=== PATIENT | female | born 1945 | race Caucasian/White ===

== ENCOUNTER 2017-06-01 05:07 | Inpatient (IN) | payer OTHER, MEDICARE ==
[~2017-06-01] VITALS: Ht 165.1 cm; Wt 80.0 kg
[2017-06-01 05:08] VITALS: BP 133/60; PULSE 93; RESP 18; TEMP 99.4; O2SAT 99
[2017-06-01] MEDS ORDERED: ONDANSETRON HCL 4 MG/2 ML VIAL IV PUSH ONE (05:30)
[2017-06-01] MEDS ORDERED: SODIUM CHLORID 0.9% 500 ML INJ 500 ML IV ONE (05:30)
--- NOTE | 2017-06-01 05:44 | PD ---
HPI Chief Complaint: Abdominal Pain Time Seen by Provider: 05:17 Travel History International Travel<30 days: No Contact w/Intl Traveler<30days: No Traveled to known affect area: No History of Present Illness HPI The patient is a 72 year old female who presents to the [facility] [address] emergency department with a history of reportedly not feeling well for the last 2 days. She reports that it began with generalized body aches, nausea, and cough. She reports that since then she has developed a dry mouth, nausea vomiting since last evening 5, however no new diarrhea. The patient reports that she has loose stools usually 2 times per day. She denies having any blood in her stool or black or tarry stools. She reports having a subjective fever and chills. She reports that her cough is dry in character. She denies having any dysuria, urinary urgency, or urinary frequency. She reports having left sided abdominal pain associated with this. She is visiting from out of town. She reports that the symptoms are similar to when she had shingles. She denies having any rashes currently. Review of systems otherwise, the patient denies having any neck stiffness, chest pain, shortness of breath, or neurologic symptoms. [facility] Past Medical History Narrative Medical The patient's past medical history is significant for hypertension, carotid artery occlusion status post stent placement, shingles-2012, history of squamous cell carcinoma, history of asthma/COPD, hyperlipidemia, chronic sinusitis, allergic rhinitis. Past Surgical History Narrative Surgical The patient's past surgical history is significant for repair of mesenteric artery occlusion, cholecystectomy, hysterectomy, carotid artery stent placement , sinus surgery, cardiac cath in the past 2 without any evidence of coronary artery disease, and squamous cell skin carcinoma resection. Social History Alcohol Use: No Tobacco Use: No (Quit in 2003) Substance Use: No Allergies-Medications (Allergen,Severity, Reaction): Coded Allergies: No Known Allergies (Unverified , 06/01/17) Reported Meds & Prescriptions Reported Meds & Active Scripts Active Reported Breo Ellipta Inh (Fluticasone/Vilanterol) 200-25 Mcg/Act Inh 1 Puff INH DAILY Use daily at the same time. Ventolin Hfa 18 GM Inh (Albuterol Sulfate) 90 Mcg/Act Aer 1 Puff INH Q4H PRN Carvedilol 12.5 Mg Tab 12.5 Mg PO BID Montelukast (Montelukast Sodium) 10 Mg Tab 10 Mg PO HS Lovastatin 10 Mg Tab 10 Mg PO DAILY Aspirin 81 Mg Chew 81 Mg CHEW DAILY Cetirizine (Cetirizine HCl) 10 Mg Chew 10 Mg CHEW DAILY Amlodipine-Benazepril 2.5-10 (Amlodipine Besylate/Benazepril) 2.5 Mg-10 Mg Capsule Hydrochlorothiazide 25 Mg Tab 25 Mg PO DAILY Flonase Nasal Anza (Fluticasone Nasal Anza) 50 Mcg/Act Anza 50 Mcg EACH NARE BID Robitussin Cough Chest Congestion (Dextromethorphan-Guaifenesin) 10-200 Mg Cap 1 Cap PO Q4H PRN Review of Systems Except as stated in HPI: all other systems reviewed are Neg General / Constitutional: No: Fever Eyes: No: Visual changes HENT: No: Headaches Cardiovascular: No: Chest Pain or Discomfort Respiratory: No: Shortness of Breath Gastrointestinal: Positive: Nausea, Vomiting, Abdominal Pain Genitourinary: No: Dysuria Musculoskeletal: No: Pain Skin: No Rash Neurologic: No: Weakness Psychiatric: No: Depression Endocrine: No: Polydipsia Hematologic/Lymphatic: No: Easy Bruising Physical Exam Narrative General: The patient is a well-developed well-nourished female in no acute distress. Head and Neck exam: Head is normocephalic atraumatic. Eyes: EOMI, pupils are equal round and reactive to light. Nose: Midline septum with pink mucous membranes Mouth: Dentition unremarkable. Moist mucus membranes. Posterior oropharynx is not erythematous. No tonsillar hypertrophy. Uvula midline. Airway patent. Neck: No palpable lymphadenopathy. No nuchal rigidity. No thyromegaly. Cardiovascular: Regular rate and rhythm without murmurs, gallops, or rubs. No pulse deficit to the extremities on simultaneous auscultation and palpation of her radial artery. Lungs: Clear to auscultation bilaterally. No wheezes, rhonchi, or rales. Abdomen: Soft, with reported tenderness on palpation in the left upper and lower quadrant of the abdomen, no other tenderness on palpation of the other quadrants of the abdomen, no guarding, rebound, or rigidity. Normal bowel sounds are audible. No tenderness on palpation of McBurney's point. Negative Simons sign. Extremities: No clubbing, cyanosis, or edema. 2+ pulses in all 4 extremities. No calf tenderness on palpation. Back: No spinous process tenderness to palpation. The patient has left-sided CVA tenderness on palpation. Neurologic Exam: Grossly nonfocal. Skin Exam: No rash noted. Intact skin that is warm and dry. Data Data Last Documented VS Vital Signs Date Time Temp Pulse Resp B/P (MAP) Pulse Ox O2 Delivery O2 Flow Rate FiO2 06/01/17 05:08 99.4 93 18 133/60 (84) 99 Orders Orders Electrocardiogram (06/01/17 05:20) Complete Blood Count With Diff (06/01/17 05:20) Comprehensive Metabolic Panel (06/01/17 05:20) Creatine Kinase (Cpk) (06/01/17 05:20) Ckmb (Isoenzyme) Profile (06/01/17 05:20) Troponin I (06/01/17 05:20) Prothrombin Time / Inr (Pt) (06/01/17 05:20) Act Partial Throm Time (Ptt) (06/01/17 05:20) Lipase (06/01/17 05:20) Urinalysis - C+S If Indicated (06/01/17 05:20) Magnesium (Mg) (06/01/17 05:20) Chest, Single Ap (06/01/17 05:20) Iv Access Insert/Monitor (06/01/17 05:20) Ecg Monitoring (06/01/17 05:20) Oximetry (06/01/17 05:20) Lactic Acid Sepsis Protocol (06/01/17 05:20) Sodium Chlorid 0.9% 500 Ml Inj (Ns 500 M (06/01/17 05:30) Ondansetron Inj (Zofran Inj) (06/01/17 05:30) Blood Culture (06/01/17 06:27) Ct Abd/Pel W Iv Contrast(Rout) (06/01/17 ) Ceftriaxone Inj (Rocephin Inj) (06/01/17 06:30) Azithromycin Inj (Zithromax Inj) (06/01/17 06:30) Influenzae A/B Antigen (06/01/17 06:27) Labs Laboratory Tests Test 06/01/17 05:40 06/01/17 06:12 Lactic Acid Level 1.6 mmol/L White Blood Count 15.8 TH/MM3 Red Blood Count 4.59 MIL/MM3 Hemoglobin 13.7 GM/DL Hematocrit 39.8 % Mean Corpuscular Volume 86.8 FL Mean Corpuscular Hemoglobin 29.8 PG Mean Corpuscular Hemoglobin Concent 34.3 % Red Cell Distribution Width 12.8 % Platelet Count 236 TH/MM3 Mean Platelet Volume 8.1 FL Neutrophils (%) (Auto) 88.4 % Lymphocytes (%) (Auto) 5.1 % Monocytes (%) (Auto) 6.1 % Eosinophils (%) (Auto) 0.1 % Basophils (%) (Auto) 0.3 % Neutrophils # (Auto) 13.9 TH/MM3 Lymphocytes # (Auto) 0.8 TH/MM3 Monocytes # (Auto) 1.0 TH/MM3 Eosinophils # (Auto) 0.0 TH/MM3 Basophils # (Auto) 0.1 TH/MM3 CBC Comment DIFF FINAL Differential Comment Prothrombin Time 10.3 SEC Prothromb Time International Ratio 1.0 RATIO Activated Partial Thromboplast Time 27.2 SEC MDM Medical Decision Making Medical Screen Exam Complete: Yes Emergency Medical Condition: Yes Medical Record Reviewed: Yes Interpretation(s) Last Impressions Chest X-Ray 06/01/17 0520 Signed Impressions: Service Date/Time: Thursday, June 01, 2017 05:45 - CONCLUSION: 1. Left basal pneumonia. Recommend medical treatment and followup to resolution. 2. Nodular density right lower lobe. Once acute symptoms resolve a CT chest maybe warranted. Deven Tatum MD Differential Diagnosis Viral syndrome, versus diverticulitis, versus pyelonephritis, versus gastroenteritis Narrative Course During the course of the patient's emergency department visit, the patient's history, examination, and differential diagnosis were reviewed with the patient. The patient was placed on a tooth grinder with oximetry and frequent blood pressure monitoring. The patient had IV access obtained and blood work sent for analysis. The patient was initially provided normal saline a 500 mL bolus, Zofran 4 mg IV. The patient's laboratory studies were reviewed and remarkable for a white count of 15.8, hemoglobin 13.7, platelets 236 with 88.4 neutrophils, lactic acid is 1.6, PT 10.3, PTT 27.2. Radiology studies were reviewed and remarkable for a chest x-ray that shows a left basilar pneumonia, recommend medical treatment and follow-up to resolution , nodular density right lower lobe, once acute symptoms resolve a CT chest may be warranted. Blood cultures 2 were added to the patient's evaluation. The patient was started on Rocephin and Zithromax IV. The patient's chemistry, urinalysis, CT scan of the abdomen and pelvis are pending at the conclusion of my shift. The patient's case will be checked out to the oncoming physician to disposition the patient based on the conclusion of her workup. Sepsis Criteria SIRS Criteria (2 or more): Heart rate over 90, WBC > 47065, < 4000 or > 10% bands Sepsis Criteria (SIRS+source): Infect source susp/known Diagnosis Primary Impression: Pneumonia Qualified Codes: J18.1 - Lobar pneumonia, unspecified organism Agatha Ramires MD Jun 01, 2017 05:44
[2017-06-01] MEDS ORDERED: DEXT1CAP5 PO (05:55)
[2017-06-01] MEDS ORDERED: FLUT1SPR5 EACH NARE (05:55)
--- NOTE | 2017-06-01 06:00 | RADRPT ---
EXAM DATE/TIME: 06/01/2017 05:45 [facility] COMPARISON: No previous studies available for comparison. INDICATIONS : Upper abdominal pain. MEDICAL HISTORY : Asthma. SURGICAL HISTORY : None. ENCOUNTER: Initial ACUITY: 2 days PAIN SCORE: 5/10 LOCATION: Upper abdomen. FINDINGS: A single view of the chest demonstrates left basilar airspace disease. Nodular density right lower lo be. Heart mildly enlarged. Osseous structures are intact. CONCLUSION: 1. Left basal pneumonia. Recommend medical treatment and followup to resolution. 2. Nodular density right lower lobe. Once acute symptoms resolve a CT chest maybe warranted. Deven Tatum MD on June 01, 2017 at 5:57 Board Certified Radiologist. This report was verified electronically.
[2017-06-01] MEDS ORDERED: CETI10CH CHEW (06:05)
[2017-06-01] MEDS ORDERED: LOVA10TA PO (06:05)
[2017-06-01] MEDS ORDERED: HYDR25TA5 PO (06:05)
[2017-06-01] MEDS ORDERED: ASPI-516 CHEW (06:05)
[2017-06-01] MEDS ORDERED: MONT10TA4 PO (06:05)
[2017-06-01] MEDS ORDERED: FLUT1INH7 INH (06:05)
[2017-06-01] MEDS ORDERED: AMLO2.5C (06:05)
[2017-06-01] MEDS ORDERED: VENTAER INH (06:05)
[2017-06-01] MEDS ORDERED: CARV12.52 PO (06:05)
[2017-06-01 06:29] LABS: AUTOMATED NEUTROPHIL # 13.9 TH/MM3 (1.8-7.7); BASOPHIL # 0.1 TH/MM3 (0-0.2); BASOPHIL % 0.3 % (0.0-2.0); EOSINOPHIL % 0.1 % (0.0-4.0); HEMATOCRIT 39.8 % (35.0-46.0); HEMOGLOBIN 13.7 GM/DL (11.6-15.3); LYMPH % 5.1 % (9.0-44.0); LYMPHOCYTE # 0.8 TH/MM3 (1.0-4.8); MEAN CELL VOLUME 86.8 FL (80.0-100.0); MEAN CORPUSCULAR HEMOGLOBIN 29.8 PG (27.0-34.0); MEAN CORPUSCULAR HGB CONC 34.3 % (32.0-36.0); MEAN PLATELET VOLUME 8.1 FL (7.0-11.0); MONO % 6.1 % (0.0-8.0); NEUT % 88.4 % (16.0-70.0); PLATELET COUNT 236 TH/MM3 (150-450); RED BLOOD COUNT 4.59 MIL/MM3 (4.00-5.30); RED CELL DISTRIBUTION WIDTH 12.8 % (11.6-17.2); WHITE BLOOD COUNT 15.8 TH/MM3 (4.0-11.0)
[2017-06-01] MEDS ORDERED: cefTRIAXone INJ 1,000 MG in SODIUM CHLORIDE 0.9% INJ 100 ML IV ONE (06:30)
[2017-06-01] MEDS ORDERED: AZITHROMYCIN INJ 500 MG in SODIUM CHLOR 0.9% 250 ML INJ 250 ML IV ONE (06:30)
[2017-06-01 06:34] LABS: PROTHROMBIN TIME - PATIENT 10.3 SEC (9.8-11.6)
[2017-06-01 07:07] LABS: ALT (GPT) 50 U/L (10-53)
[2017-06-01 08:21] LABS: ALBUMIN 2.8 GM/DL (3.4-5.0); ALKALINE PHOSPHATASE 192 U/L (45-117); AST (GOT) 77 U/L (15-37); BICARBONATE 24.6 MEQ/L (21.0-32.0); BLOOD UREA NITROGEN 3 MG/DL (7-18); CALCIUM 7.7 MG/DL (8.5-10.1); CHLORIDE 94 MEQ/L (98-107); CREATININE 0.58 MG/DL (0.50-1.00); GLOMERULAR FILTRATION RATE 103 ML/MIN (>89); GLUCOSE,RANDOM 130 MG/DL (74-106); MAGNESIUM 1.6 MG/DL (1.5-2.5); SODIUM (NA) 129 MEQ/L (136-145); TOTAL PROTEIN 6.7 GM/DL (6.4-8.2); TROPONIN I LESS THAN 0.02 NG/ML (0.02-0.05)
[2017-06-01] MEDS ORDERED: CALCIUM GLUCONATE INJ 1 GM in DEXTROSE 5% IN WATER 100ML INJ 100 ML IV ONE ×2 (08:45)
[2017-06-01] MEDS ORDERED: POTASSIUM CHLORIDE 20 MEQ CONTROLLED RELEASE TAB PO ONE (08:45)
[2017-06-01] MEDS ORDERED: POTASSIUM CHLOR 20 MEQ PREMIX 100 ML IV ONE (08:45)
[2017-06-01] MEDS ORDERED: IOHEXOL 350 MG/ML 10 ML VIAL (for RAD DIAG) IVCONTRAST ONE (09:00)
--- NOTE | 2017-06-01 09:38 | RADRPT ---
EXAM DATE/TIME: 06/01/2017 08:51 [facility] COMPARISON: No previous studies available for comparison. INDICATIONS : Left sided abdominal pain, aches, nausea, cough IV CONTRAST: 89 cc Omnipaque 350 (iohexol) IV ORAL CONTRAST: No oral contrast ingested. RADIATION DOSE: 12.69 CTDIvol (mGy) MEDICAL HISTORY : Chronic obstructive pulmonary disease. Hypertension. SURGICAL HISTORY : Cholecystectomy. Hysterectomy.repair mesentery artery occlusion ENCOUNTER: Initial ACUITY: 2 days PAIN SCALE: 5/10 LOCATION: Left abdominal area TECHNIQUE: Volumetric scanning of the abdomen and pelvis was performed. Using automated exposure control and ad justment of the mA and/or kV according to patient size, radiation dose was kept as low as reasonably achievable to obtain optimal diagnostic quality images. DICOM format image data is available electro nically for review and comparison. FINDINGS: LOWER LUNGS: Bibasilar patchy opacities are noted within the lower lobes consistent with probable pneumonia. Clini kassidy correlation is recommended. Tiny right pleural effusion is noted. LIVER: The liver is enlarged. Homogeneous density without lesion. There is mild intrahepatic and extrahepati c biliary ductal dilatation with the common bile duct measuring 10 mm. Correlation without alkaline p hosphatase and bilirubin levels is suggested to rule out biliary obstruction. Status post cholecystec abdoul. No calcified gallstones. SPLEEN: Mild splenomegaly is noted. PANCREAS: Within normal limits. KIDNEYS: Normal in size and shape. There is no mass, stone or hydronephrosis. ADRENAL GLANDS: Within normal limits. VASCULAR: There is no aortic aneurysm. Retroaortic left renal vein is noted. BOWEL/MESENTERY: Uncomplicated colonic diverticulosis is noted. No acute diverticulitis is noted. ABDOMINAL WALL: Small ventral umbilical hernia containing only fat is noted RETROPERITONEUM: There is no lymphadenopathy. BLADDER: No wall thickening or mass. REPRODUCTIVE: Within normal limits. INGUINAL: There is no lymphadenopathy. Small bilateral inguinal hernias containing only fat are noted. MUSCULOSKELETAL: Mild degenerative changes and scoliosis of the thoracolumbar spine are noted. CONCLUSION: 1. Patchy alveolar consolidations within the posterior lung bases bilaterally consistent with probabl e pneumonia. Clinical correlation is recommended. 2. Mild intrahepatic and extrahepatic biliary ductal dilatation raising the possibility of biliary ob struction. Correlation with alkaline phosphatase and bilirubin levels is suggested. 3. Hepatosplenomegaly. 4. Small right pleural effusion. 5. Uncomplicated colonic diverticulosis. 6. Bilateral inguinal hernias containing only fat. 7. Small umbilical hernia containing only fat. 8. Mild degenerative changes and scoliosis of the thoracolumbar spine. Leon Guerrero MD on June 01, 2017 at 9:28 Board Certified Radiologist. This report was verified electronically.
[2017-06-01 09:52] LABS: BACTERIA, URINE RARE /hpf; BILIRUBIN, URINE NEG (NEG); BLOOD, URINE SMALL (NEG); GLUCOSE,URINE NEG (NEG); KETONE, URINE NEG (NEG); NITRITE,URINE NEG (NEG); URINE COLOR LIGHT-YELLOW (YELLW/STRAW); URINE LEUKOCYTE ESTERASE NEG (NEG)
--- NOTE | 2017-06-01 10:05 | PD ---
Physical Exam Narrative Patient was seen by ED physician and signed out to me. Data Data Last Documented VS Vital Signs Date Time Temp Pulse Resp B/P (MAP) Pulse Ox O2 Delivery O2 Flow Rate FiO2 06/01/17 05:08 99.4 93 18 133/60 (84) 99 Orders Orders Electrocardiogram (06/01/17 05:20) Complete Blood Count With Diff (06/01/17 05:20) Comprehensive Metabolic Panel (06/01/17 05:20) Creatine Kinase (Cpk) (06/01/17 05:20) Ckmb (Isoenzyme) Profile (06/01/17 05:20) Troponin I (06/01/17 05:20) Prothrombin Time / Inr (Pt) (06/01/17 05:20) Act Partial Throm Time (Ptt) (06/01/17 05:20) Lipase (06/01/17 05:20) Urinalysis - C+S If Indicated (06/01/17 05:20) Magnesium (Mg) (06/01/17 05:20) Chest, Single Ap (06/01/17 05:20) Iv Access Insert/Monitor (06/01/17 05:20) Ecg Monitoring (06/01/17 05:20) Oximetry (06/01/17 05:20) Lactic Acid Sepsis Protocol (06/01/17 05:20) Sodium Chlorid 0.9% 500 Ml Inj (Ns 500 M (06/01/17 05:30) Ondansetron Inj (Zofran Inj) (06/01/17 05:30) Blood Culture (06/01/17 06:27) Ct Abd/Pel W Iv Contrast(Rout) (06/01/17 ) Ceftriaxone Inj (Rocephin Inj) (06/01/17 06:30) Azithromycin Inj (Zithromax Inj) (06/01/17 06:30) Influenzae A/B Antigen (06/01/17 06:27) Potassium Chloride (Kcl) (06/01/17 08:45) Potassium Chlor 20 Meq Premix (Kcl 20 Me (06/01/17 08:45) Calcium Gluconate Inj (Calcium Gluconate (06/01/17 08:45) Iohexol 350 Inj (Omnipaque 350 Inj) (06/01/17 09:00) Labs Laboratory Tests Test 06/01/17 05:40 06/01/17 06:12 06/01/17 07:40 06/01/17 08:53 Lactic Acid Level 1.6 mmol/L White Blood Count 15.8 TH/MM3 Red Blood Count 4.59 MIL/MM3 Hemoglobin 13.7 GM/DL Hematocrit 39.8 % Mean Corpuscular Volume 86.8 FL Mean Corpuscular Hemoglobin 29.8 PG Mean Corpuscular Hemoglobin Concent 34.3 % Red Cell Distribution Width 12.8 % Platelet Count 236 TH/MM3 Mean Platelet Volume 8.1 FL Neutrophils (%) (Auto) 88.4 % Lymphocytes (%) (Auto) 5.1 % Monocytes (%) (Auto) 6.1 % Eosinophils (%) (Auto) 0.1 % Basophils (%) (Auto) 0.3 % Neutrophils # (Auto) 13.9 TH/MM3 Lymphocytes # (Auto) 0.8 TH/MM3 Monocytes # (Auto) 1.0 TH/MM3 Eosinophils # (Auto) 0.0 TH/MM3 Basophils # (Auto) 0.1 TH/MM3 CBC Comment DIFF FINAL Differential Comment Prothrombin Time 10.3 SEC Prothromb Time International Ratio 1.0 RATIO Activated Partial Thromboplast Time 27.2 SEC Blood Urea Nitrogen 3 MG/DL Creatinine 0.58 MG/DL Random Glucose 130 MG/DL Total Protein 6.7 GM/DL Albumin 2.8 GM/DL Calcium Level 7.7 MG/DL Magnesium Level 1.6 MG/DL Alkaline Phosphatase 192 U/L Aspartate Amino Transf (AST/SGOT) 77 U/L Alanine Aminotransferase (ALT/SGPT) 50 U/L Total Bilirubin 1.0 MG/DL Sodium Level 129 MEQ/L Potassium Level 2.6 MEQ/L Chloride Level 94 MEQ/L Carbon Dioxide Level 24.6 MEQ/L Anion Gap 10 MEQ/L Estimat Glomerular Filtration Rate 103 ML/MIN Total Creatine Kinase 31 U/L Troponin I LESS THAN 0.02 NG/ML Lipase 69 U/L Urine Color LIGHT-YELLOW Urine Turbidity CLEAR Urine pH 7.0 Urine Specific Dresher 1.006 Urine Protein NEG mg/dL Urine Glucose (UA) NEG mg/dL Urine Ketones NEG mg/dL Urine Occult Blood SMALL Urine Nitrite NEG Urine Bilirubin NEG Urine Urobilinogen LESS THAN 2.0 MG/DL Urine Leukocyte Esterase NEG Urine RBC 2 /hpf Urine Bacteria RARE /hpf Microscopic Urinalysis Comment CULT NOT INDICATED MDM Supervised Visit with MANFRED: No Interpretation(s) Last Impressions Chest X-Ray 06/01/17 0520 Signed Impressions: Service Date/Time: Thursday, June 01, 2017 05:45 - CONCLUSION: 1. Left basal pneumonia. Recommend medical treatment and followup to resolution. 2. Nodular density right lower lobe. Once acute symptoms resolve a CT chest maybe warranted. Deven Tatum MD Abdomen/Pelvis CT 06/01/17 0000 Signed Impressions: Service Date/Time: Thursday, June 01, 2017 08:51 - CONCLUSION: 1. Patchy alveolar consolidations within the posterior lung bases bilaterally consistent with probable pneumonia. Clinical correlation is recommended. 2. Mild intrahepatic and extrahepatic biliary ductal dilatation raising the possibility of biliary obstruction. Correlation with alkaline phosphatase and bilirubin levels is suggested. 3. Hepatosplenomegaly. 4. Small right pleural effusion. 5. Uncomplicated colonic diverticulosis. 6. Bilateral inguinal hernias containing only fat. 7. Small umbilical hernia containing only fat. 8. Mild degenerative changes and scoliosis of the thoracolumbar spine. Leon Guerrero MD 9:58 AM. CBC WBC 15.8. 88 neutrophil. Sodium 129. Potassium 2.6. Chloride 94. Lactic acid 1.6. Total bili 1.0. AST 77. Alkaline phosphatase 192. Cardiac enzymes are normal. UA is negative. Diagnosis Primary Impression: Pneumonia Qualified Codes: J18.1 - Lobar pneumonia, unspecified organism Additional Impressions: Hyponatremia Hypokalemia Admitting Information Admitting Physician Requests: Antwon Carbajal MD Jun 01, 2017 10:05
[2017-06-01 11:34] VITALS: BP 141/62; PULSE 88; RESP 21; O2SAT 93
[2017-06-01] MEDS ORDERED: NALOXONE HCL 0.4 MG/ML AMP IV PUSH PRN (11:45)
[2017-06-01] MEDS ORDERED: guaiFENesin/DEXTROMETHORPHAN 200 MG/20 MG/10 ML CUP PO PRN (11:45)
[2017-06-01] MEDS ORDERED: MAGNESIUM HYDROXIDE SUSP 30 ML CUP PO PRN (11:45)
[2017-06-01] MEDS ORDERED: SODIUM CHLORIDE 0.9% FLUSH 10 ML FLUSH IV FLUSH PRN (11:45)
[2017-06-01] MEDS ORDERED: SENNOSIDES 8.6 MG TAB PO PRN (11:45)
[2017-06-01] MEDS ORDERED: ONDANSETRON HCL 4 MG/2 ML VIAL IVP PRN (11:45)
[2017-06-01] MEDS ORDERED: LACTULOSE SYRUP 20 GM/30 ML CUP PO PRN (12:00)
[2017-06-01] MEDS ORDERED: ALBUTEROL SULFATE 90 MCG/ACT HFA 8 GM INHALER INH PRN (12:00)
[2017-06-01] MEDS ORDERED: BISACODYL 10 MG SUPP RECTAL PRN (12:00)
[2017-06-01] MEDS ORDERED: ACETAMINOPHEN/HYDROcodone 325 MG/5 MG TAB PO PRN (12:00)
[2017-06-01] MEDS ORDERED: ACETAMINOPHEN 325 MG TAB PO PRN (12:00)
--- NOTE | 2017-06-01 14:11 | HHI.HP ---
HPI Service [facility] Primary Care Physician Unknown Admission Diagnosis Pneumonia. Hyponatremia. Hypokalemia. Hypocalcemia. Diagnoses: Chief Complaint: headache, nausea/vomiting, myalgias Travel History International Travel<30 Days: No Contact w/Intl Traveler <30 Da: No Traveled to Known Affected Are: No Sepsis Criteria SIRS Criteria (2 or more): Heart rate over 90, WBC > 10682, < 4000 or > 10% bands Sepsis Criteria (SIRS+source): Infect source susp/known Criteria Outcome: Meets sepsis criteria History of Present Illness Written by Sheryl Edmondson, acting as scribe for Dr. Mcbride on 06/01/17 at 14: 09. 72-year-old female with history of HTN, HLD, carotid stenosis s/p Left CEA, asthma, COPD, seasonal allergies, presents with 1 day history of myalgias, fevers, chills, headache, nausea, and vomiting. The patient reports she has just been feeling miserable over the past 1-2 days. She complains of diffuse global headache that started last night, associated with intractable nausea and multiple episodes of vomiting that began at 10pm. She reports subjective intermittent fevers and chills but did not take her temperature at home. Denies any specific abdominal pains. She reports chronic diarrhea with no changes in bowel movements recently. Today she continued to have severe diffuse myalgias therefore presented to the ER. She denies any current cough, congestion, sore throat, or shortness of breath. Denies any dysuria or urinary complaints. She has no other medical complaints at this time. Review of Systems Except as stated in HPI: all other systems reviewed are Neg Past Family Social History Past Medical History HTN HLD carotid stenosis s/p Left CEA asthma COPD seasonal allergies shingles in 2013 chronic sinusitis chronic diarrhea mesenteric artery occlusion Past Surgical History cholecystectomy sinus cyst removed left carotid angioplasty/stent x2 cardiac catheterization x2 without evidence of CAD hysterectomy squamous cell skin cancer resection Reported Medications Breo Ellipta Inh (Fluticasone/Vilanterol) 200-25 Mcg/Act Inh 1 Puff INH DAILY Use daily at the same time. Ventolin Hfa 18 GM Inh (Albuterol Sulfate) 90 Mcg/Act Aer 1 Puff INH Q4H PRN Carvedilol 12.5 Mg Tab 12.5 Mg PO BID Montelukast (Montelukast Sodium) 10 Mg Tab 10 Mg PO HS Lovastatin 10 Mg Tab 10 Mg PO DAILY Aspirin 81 Mg Chew 81 Mg CHEW DAILY Cetirizine (Cetirizine HCl) 10 Mg Chew 10 Mg CHEW DAILY Amlodipine-Benazepril 2.5-10 (Amlodipine Besylate/Benazepril) 2.5 Mg-10 Mg Capsule Hydrochlorothiazide 25 Mg Tab 25 Mg PO DAILY Flonase Nasal [place] (Fluticasone Nasal [place]) 50 Mcg/Act [place] 50 Mcg EACH NARE BID Robitussin Cough Chest Congestion (Dextromethorphan-Guaifenesin) 10-200 Mg Cap 1 Cap PO Q4H PRN Allergies: Coded Allergies: No Known Allergies (Unverified , 06/01/17) Active Ordered Medications Current Medications Medications (Trade) Dose Ordered Sig/Yary Route Start Time Stop Time Status Last Admin (NS Flush) 2 ml UNSCH PRN IV FLUSH 06/01/17 11:45 (NS Flush) 2 ml BID IV FLUSH 06/01/17 21:00 (Zofran Inj) 4 mg Q6H PRN IVP 06/01/17 11:45 (Tylenol) 650 mg Q6H PRN PO 06/01/17 12:00 06/01/17 15:31 ([place] 5-325 Mg) 1 tab Q6H PRN PO 06/01/17 12:00 (Narcan Inj) 0.4 mg UNSCH PRN IV PUSH 06/01/17 11:45 (Hannah-Colace) 1 tab BID PO 06/01/17 21:00 (Milk Of Magnesia Liq) 30 ml Q12H PRN PO 06/01/17 11:45 (Senokot) 17.2 mg Q12H PRN PO 06/01/17 11:45 (Dulcolax Supp) 10 mg DAILY PRN RECTAL 06/01/17 12:00 (Lactulose Liq) 30 ml DAILY PRN PO 06/01/17 12:00 (Proair Hfa Inh) 1 puff Q4H PRN INH 06/01/17 12:00 (Aspirin Chew) 81 mg DAILY CHEW 06/02/17 09:00 (Coreg) 12.5 mg BID PO 06/01/17 21:00 (ZyrTEC) 10 mg DAILY PO 06/02/17 09:00 (Breo Ellipta 200-25 Inh) 1 puff DAILY INH 06/02/17 09:00 (Pravachol) 10 mg DAILY PO 06/02/17 09:00 (Singulair) 10 mg HS PO 06/01/17 21:00 (Robitussin Dm 200-20 Mg/10 ml Liq) 10 ml Q4H PRN PO 06/01/17 11:45 (Flonase Stephen Spr) 1 spray BID NASAL 06/01/17 21:00 Ceftriaxone Sodium 1000 mg/ Sodium Chloride 100 ml @ 200 mls/hr Q24H IV 06/02/17 06:00 Azithromycin 500 mg/Sodium Chloride 250 ml @ 250 mls/hr Q24H IV 06/02/17 07:00 Family History Mother, father, grandparents all with heart disease Father age 52 with massive [place] Mother age 72 with heart disease Grandmother age 65 with CHF Social History Quit smoking tobacco in 2003 Denies any alcohol use Denies any illicit drug use Physical Exam Vital Signs Vital Signs Date Time Temp Pulse Resp B/P (MAP) Pulse Ox O2 Delivery O2 Flow Rate FiO2 06/01/17 11:34 88 21 141/62 (88) 93 Room Air 06/01/17 05:08 99.4 93 18 133/60 (84) 99 Physical Exam GENERAL: Well-nourished, well-developed elderly female patient in [facility]. SKIN: Warm and dry. No rash. HEAD: Normocephalic. Atraumatic. EYES: Pupils equal and round. No scleral icterus. No injection or drainage. ENT: No nasal bleeding or discharge. Mucous membranes pink and moist. NECK: Supple. Trachea midline. CARDIOVASCULAR: Regular rate and rhythm. S1, S2 noted. No murmur appreciated. RESPIRATORY: No accessory muscle use. Mild diffuse wheezing. Crackles at left lung base. Breath sounds equal bilaterally. GASTROINTESTINAL: Abdomen soft, non-tender, nondistended. Normoactive bowel sounds x4. MUSCULOSKELETAL: No obvious deformities. Extremities without clubbing, cyanosis , or edema. NEUROLOGICAL: Awake and alert. No obvious cranial nerve deficits. Motor grossly within normal limits. Normal speech. PSYCHIATRIC: Appropriate mood and affect; insight and judgment normal. Laboratory Laboratory Tests Test 06/01/17 05:40 06/01/17 06:12 06/01/17 07:40 06/01/17 08:53 Lactic Acid Level 1.6 White Blood Count 15.8 Red Blood Count 4.59 Hemoglobin 13.7 Hematocrit 39.8 Mean Corpuscular Volume 86.8 Mean Corpuscular Hemoglobin 29.8 Mean Corpuscular Hemoglobin Concent 34.3 Red Cell Distribution Width 12.8 Platelet Count 236 Mean Platelet Volume 8.1 Neutrophils (%) (Auto) 88.4 Lymphocytes (%) (Auto) 5.1 Monocytes (%) (Auto) 6.1 Eosinophils (%) (Auto) 0.1 Basophils (%) (Auto) 0.3 Neutrophils # (Auto) 13.9 Lymphocytes # (Auto) 0.8 Monocytes # (Auto) 1.0 Eosinophils # (Auto) 0.0 Basophils # (Auto) 0.1 CBC Comment DIFF FINAL Differential Comment Prothrombin Time 10.3 Prothromb Time International Ratio 1.0 Activated Partial Thromboplast Time 27.2 Blood Urea Nitrogen 3 Creatinine 0.58 Random Glucose 130 Total Protein 6.7 Albumin 2.8 Calcium Level 7.7 Magnesium Level 1.6 Alkaline Phosphatase 192 Aspartate Amino Transf (AST/SGOT) 77 Alanine Aminotransferase (ALT/SGPT) 50 Total Bilirubin 1.0 Sodium Level 129 Potassium Level 2.6 Chloride Level 94 Carbon Dioxide Level 24.6 Anion Gap 10 Estimat Glomerular Filtration Rate 103 Total Creatine Kinase 31 Troponin I LESS THAN 0.02 Lipase 69 Urine Color LIGHT-YELLOW Urine Turbidity CLEAR Urine pH 7.0 Urine Specific [place] 1.006 Urine Protein NEG Urine Glucose (UA) NEG Urine Ketones NEG Urine Occult Blood SMALL Urine Nitrite NEG Urine Bilirubin NEG Urine Urobilinogen LESS THAN 2.0 Urine Leukocyte Esterase NEG Urine RBC 2 Urine Bacteria RARE Microscopic Urinalysis Comment CULT NOT INDICATED Date/Time Source Procedure Growth Status 06/01/17 07:40 Blood Peripheral Aerobic Blood Culture Pending Received 06/01/17 07:40 Blood Peripheral Anaerobic Blood Culture Pending Received 06/01/17 07:40 Nasal Aspirate Influenza Types A,B Antigen (ERNST) - Final NEGATIVE FOR FLU A AND B ANTIGEN.... Complete Result Diagram: 06/01/17 0612 06/01/17 0740 Imaging Last Impressions Chest X-Ray 06/01/17 0520 Signed Impressions: Service Date/Time: Thursday, June 01, 2017 05:45 - CONCLUSION: 1. Left basal pneumonia. Recommend medical treatment and followup to resolution. 2. Nodular density right lower lobe. Once acute symptoms resolve a CT chest maybe warranted. Deven Tatum MD Abdomen/Pelvis CT 06/01/17 0000 Signed Impressions: Service Date/Time: Thursday, June 01, 2017 08:51 - CONCLUSION: 1. Patchy alveolar consolidations within the posterior lung bases bilaterally consistent with probable pneumonia. Clinical correlation is recommended. 2. Mild intrahepatic and extrahepatic biliary ductal dilatation raising the possibility of biliary obstruction. Correlation with alkaline phosphatase and bilirubin levels is suggested. 3. Hepatosplenomegaly. 4. Small right pleural effusion. 5. Uncomplicated colonic diverticulosis. 6. Bilateral inguinal hernias containing only fat. 7. Small umbilical hernia containing only fat. 8. Mild degenerative changes and scoliosis of the thoracolumbar spine. Leon Guerrero MD Capdoreeni VTE Risk Assessment Caprini VTE Risk Assessment: Mod/High Risk (score >= 2) Caprini Risk Assessment Model Point Value = 1 Point Value = 2 Point Value = 3 Point Value = 5 Age 41-60 Minor surgery BMI > 25 kg/m2 Swollen legs Varicose veins or History of unexplained or recurrent spontaneous Oral contraceptives or hormone replacement Sepsis (< 1 month) Serious lung disease, including pneumonia (< 1 month) Abnormal pulmonary function Acute myocardial infarction Congestive heart failure (< 1 month) History of inflammatory bowel disease Medical patient at bed rest Age 61-74 Arthroscopic surgery Major open surgery (> 45 min) Laparoscopic surgery (> 45 min) Malignancy Confined to bed (> 72 hours) Immobilizing plaster cast Central venous access Age >= 75 History of VTE Family history of VTE Factor V Leiden Prothrombin [id number] Lupus anticoagulant Anticardiolipin antibodies Elevated serum homocysteine Heparin-induced thrombocytopenia Other congenital or acquired thrombophilia Stroke (< 1 month) Elective arthroplasty Hip, pelvis, or leg fracture Acute spinal cord injury (< 1 month) Prophylaxis Regimen Total Risk Factor Score Risk Level Prophylaxis Regimen 0-1 Low Early ambulation 2 Moderate Order ONE of the following: *Sequential Compression Device (SCD) *Heparin 5000 units SQ BID 3-4 Higher Order ONE of the following medications: *Heparin 5000 units SQ TID *Enoxaparin/Lovenox 40 mg SQ daily (WT < 150 kg, CrCl > 30 mL/min) *Enoxaparin/Lovenox 30 mg SQ daily (WT < 150 kg, CrCl > 10-29 mL/min) *Enoxaparin/Lovenox 30 mg SQ BID (WT < 150 kg, CrCl > 30 mL/min) AND/OR *Sequential Compression Device (SCD) 5 or more Highest Order ONE of the following medications: *Heparin 5000 units SQ TID (Preferred with Epidurals) *Enoxaparin/Lovenox 40 mg SQ daily (WT < 150 kg, CrCl > 30 mL/min) *Enoxaparin/Lovenox 30 mg SQ daily (WT < 150 kg, CrCl > 10-29 mL/min) *Enoxaparin/Lovenox 30 mg SQ BID (WT < 150 kg, CrCl > 30 mL/min) AND *Sequential Compression Device (SCD) Assessment and Plan Problem List: (1) Pneumonia ICD Code: J18.9 - Pneumonia, unspecified organism Status: Acute (2) Hyponatremia ICD Code: E87.1 - Hypo-osmolality and hyponatremia Status: Acute (3) Hypokalemia ICD Code: E87.6 - Hypokalemia Status: Acute Assessment and Plan 72-year-old female with history of HTN, HLD, carotid stenosis s/p Left CEA, asthma, COPD, seasonal allergies, presents with 1 day history of myalgias, fevers, chills, headache, nausea, and vomiting. Sepsis with Aspiration Pneumonia: patient with multiple episodes of vomiting prior to arrival. Patient meets sepsis criteria with WBC 15K, HR 93, and source - pneumonia. Flu negative. -CXR images reviewed, shows left basilar pneumonia -CT abd/pelvis shows patchy alveolar consolidations with posterior lung bases bilaterally consistent with pneumonia -Blood cultures collected and pending -Obtain sputum culture -Continue antibiotics with IV Rocephin, IV Azithro, and add IV Flagyl for anaerobic coverage -Incentive spirometry, O2 as needed -Albuterol inhaler prn -Monitor for improvement Intractable Nausea/Vomiting: possible gastroenteritis vs biliary obstruction vs acute cholecystitis vs other. -CT abd/pelvis reviewed, shows intra/extrahepatic biliary ductal dilatation raising possibility of biliary obstruction -LFTs mildly elevated with AST 77, ALT 50, and Alk Phos 192 -Will check liver/gallbladder U/S -Repeat LFTs in am -Supportive treatment with IVF, antiemetics prn Multiple Electrolyte Disturbances with Hyponatremia/Hypokalemia/Hypomagnesemia: Na 129, K 2.6, Mag 1.6, suspect secondary to intractable vomiting as above. -given IV and po KCl replacement -given IV Mag sulfate 2G -continue IVF with NS w/KCl at 84cc/hr -Repeat BMP in the am, replace electrolytes as needed HTN/HLD: chronic -continue patient's amlodipine, coreg, statin, aspirin -holding HCTZ for now with dehydration and hyponatremia -monitor BP, adjust antihypertensives as needed Seasonal Allergies: chronic -continue patient's fluticasone, cetirizine, robitussin prn Asthma/COPD: chronic, no wheezing on exam -continue patient's Breo, Singulair, and albuterol prn DVT Prophylaxis: Lovenox sq Discussed Condition With Patient, ER MD Physician Certification 2 Midnight Certification Type: Admission for Inpatient Services Order for Inpatient Services The services are ordered in accordance with Medicare regulations or non- Medicare payer requirements, as applicable. In the case of services not specified as inpatient-only, they are appropriately provided as inpatient services in accordance with the 2-midnight benchmark. Estimated LOS (days): 3 days is the estimated time the patient will need to remain in the hospital, assuming treatment plan goals are met and no additional complications. Post-Hospital Plan: Not yet determined Medical Decision Making MDM Remarks This note was transcribed by bereket Edmondson. I, Dr. Joe Clement personally performed the history, physical exam, and medical decision making; and confirmed the accuracy of the information in the transcribed note. Authenticated by Dr. Joe Clement on Jun 01, 2017 4:08 pm Problem Qualifiers (1) Pneumonia: Qualified Codes: J18.1 - Lobar pneumonia, unspecified organism Sheryl Edmondson PA-C Jun 01, 2017 14:11 Joe Arias MD Jun 01, 2017 16:08
[2017-06-01 14:57] VITALS: BP 129/62; PULSE 88; RESP 16; TEMP 98.6; O2SAT 95
[2017-06-01] MEDS: MAGNESIUM SULFATE 1 GM PREMIX 100 ML IV SCH ×2 (15:08→16:16)
--- NOTE | 2017-06-01 15:12 | EKG ---
Date Performed: 06/01/2017 Time Performed: 07:26:50 PTAGE: 72 years EKG: Sinus rhythm NONSPECIFIC ST & T-WAVE ABNORMALITY BORDERLINE ECG NO PREVIOUS TRACING DOCTOR: Lionel Fernández Interpretating Date/Time 06/01/2017 15:10:00
[2017-06-01] MEDS ORDERED: PILL SPLITTER OTHER PRN (17:15)
[2017-06-01 17:17] VITALS: PULSE 75
[2017-06-01] MEDS: NS + KCL 20 MEQ INJ 1,000 ML IV SCH (17:29)
[2017-06-01 19:54] VITALS: BP 114/56; PULSE 77; RESP 16; TEMP 98; O2SAT 92
[2017-06-01] MEDS: SODIUM CHLORIDE 0.9% FLUSH 10 ML FLUSH IV FLUSH SCH (21:00)
[2017-06-01] MEDS ORDERED: MONTELUKAST SODIUM 10 MG TAB PO SCH (21:00)
[2017-06-01] MEDS ORDERED: ENOXAPARIN SODIUM 40 MG/0.4 ML SYRINGE SQ SCH (21:00)
[2017-06-01] MEDS: FLUTICASONE PROPIONATE 50 MCG/ACT 16 GM NASAL SPRAY NASAL SCH (23:16)
[2017-06-01] MEDS: DOCUSATE SODIUM 50 MG/SENNA 8.6 MG TAB PO SCH (23:17)
[2017-06-01] MEDS: CARVEDILOL 12.5 MG TAB PO SCH (23:17)
[2017-06-01 23:49] VITALS: BP 101/49; PULSE 78; RESP 18; TEMP 98.3; O2SAT 93
[2017-06-02 04:12] VITALS: BP 118/54; PULSE 75; RESP 16; TEMP 98.5; O2SAT 89
[2017-06-02] MEDS ORDERED: metroNIDAZOLE 500 MG INJ 100 ML IV SCH (06:00)
[2017-06-02] MEDS ORDERED: cefTRIAXone INJ 1,000 MG in SODIUM CHLORIDE 0.9% INJ 100 ML IV SCH (06:00)
[2017-06-02] MEDS: NS + KCL 20 MEQ INJ 1,000 ML IV SCH (06:56)
[2017-06-02 06:57] LABS: AUTOMATED NEUTROPHIL # 8.5 TH/MM3 (1.8-7.7); BASOPHIL # 0.1 TH/MM3 (0-0.2); BASOPHIL % 0.6 % (0.0-2.0); EOSINOPHIL # 0.1 TH/MM3 (0-0.4); EOSINOPHIL % 0.7 % (0.0-4.0); HEMATOCRIT 34.7 % (35.0-46.0); HEMOGLOBIN 11.9 GM/DL (11.6-15.3); LYMPHOCYTE # 1.4 TH/MM3 (1.0-4.8); MEAN CORPUSCULAR HEMOGLOBIN 30.1 PG (27.0-34.0); MEAN CORPUSCULAR HGB CONC 34.2 % (32.0-36.0); MONO % 8.1 % (0.0-8.0); MONOCYTE # 0.9 TH/MM3 (0-0.9); NEUT % 77.6 % (16.0-70.0); PLATELET COUNT 230 TH/MM3 (150-450); RED BLOOD COUNT 3.94 MIL/MM3 (4.00-5.30)
[2017-06-02] MEDS ORDERED: AZITHROMYCIN INJ 500 MG in SODIUM CHLOR 0.9% 250 ML INJ 250 ML IV SCH (07:00)
[2017-06-02 07:38] LABS: ALBUMIN 2.4 GM/DL (3.4-5.0); ALKALINE PHOSPHATASE 146 U/L (45-117); ALT (GPT) 32 U/L (10-53); AST (GOT) 19 U/L (15-37); BICARBONATE 25.2 MEQ/L (21.0-32.0); BLOOD UREA NITROGEN 5 MG/DL (7-18); CHLORIDE 106 MEQ/L (98-107); CREATININE 0.55 MG/DL (0.50-1.00); GLOMERULAR FILTRATION RATE 109 ML/MIN (>89); GLUCOSE,RANDOM 106 MG/DL (74-106); MAGNESIUM 2.2 MG/DL (1.5-2.5); SODIUM (NA) 138 MEQ/L (136-145); TOTAL BILIRUBIN ADULT 0.6 MG/DL (0.2-1.0); TOTAL PROTEIN 5.9 GM/DL (6.4-8.2)
[2017-06-02 08:05] VITALS: PULSE 78
[2017-06-02 08:07] VITALS: BP 115/60; PULSE 75; RESP 16; TEMP 98.7; O2SAT 96
[2017-06-02] MEDS ORDERED: PRAVASTATIN SOD 10 MG TAB PO SCH (09:00)
[2017-06-02] MEDS ORDERED: CETIRIZINE HCL 10 MG TAB PO SCH (09:00)
[2017-06-02] MEDS ORDERED: amLODIPine BESYLATE 5 MG TAB PO SCH (09:00)
[2017-06-02] MEDS ORDERED: FLUTICASONE 200 MCG/VILANTEROL 25 MCG INHALER INH SCH (09:00)
[2017-06-02] MEDS ORDERED: ASPIRIN 81 MG CHEW TAB CHEW SCH (09:00)
[2017-06-02] MEDS: CARVEDILOL 12.5 MG TAB PO SCH (09:08)
[2017-06-02] MEDS: FLUTICASONE PROPIONATE 50 MCG/ACT 16 GM NASAL SPRAY NASAL SCH (09:08)
[2017-06-02] MEDS: SODIUM CHLORIDE 0.9% FLUSH 10 ML FLUSH IV FLUSH SCH (09:09)
[2017-06-02] MEDS: DOCUSATE SODIUM 50 MG/SENNA 8.6 MG TAB PO SCH (09:09)
--- NOTE | 2017-06-02 09:52 | RADRPT ---
EXAM DATE/TIME: 06/02/2017 08:10 [place] COMPARISON: CT ABDOMEN & PELVIS W CONTRAST, June 01, 2017, 8:51. INDICATIONS : Biliary ductal dilation. Nausea and vomiting. MEDICAL HISTORY : Hypercholesterolemia. Hypertension. Skin cancer. SURGICAL HISTORY : Cholecystectomy. Hysterectomy. Caradiac catheterization. ENCOUNTER: Initial ACUITY: 1 day PAIN SCORE: 0/10 LOCATION: Abdomen. MEASUREMENTS: LIVER: 18.7 cm length COMMON DUCT: 11 mm RIGHT KIDNEY: 11.2 x 4.6 x 4.3 cm SPLEEN: 12.8 cm length FINDINGS: LIVER: Subtle intrahepatic ductal dilatation better demonstrated on recent CT exam. Otherwise, unremarkable. COMMON DUCT: Prominent centrally. No intraluminal mass or stone visualized. GALLBLADDER: Surgically absent. PANCREAS: The visualized portions are within normal limits. RIGHT KIDNEY: No hydronephrosis, stone or mass. SPLEEN: No focal lesion. Incidental note of trace bilateral pleural effusions. CONCLUSION: 1. Status post cholecystectomy with mild diffuse biliary ductal dilatation without focal abnormality in the visualized portions of the common bile duct. Suspect findings reflect reservoir effect followi ng cholecystectomy. If there is continued clinical concern, consider MRCP examination for further deborah luation. 2. Trace bilateral pleural effusions. Alcides Webb MD on June 02, 2017 at 9:45 Board Certified Radiologist. This report was verified electronically.
--- NOTE | 2017-06-02 10:58 | HHI.PR ---
Subjective Remarks Follow-up for aspiration pneumonia. Patient reports feeling much better today. She denies any further fevers, chills, or myalgias. She reports an occasional cough productive of clear-white sputum. She denies any abdominal pain, nausea, or vomiting. She has been able to ambulate without difficulty. She is tolerating oral intake. She wants to go home. Objective Vitals Vital Signs Date Time Temp Pulse Resp B/P (MAP) Pulse Ox O2 Delivery O2 Flow Rate FiO2 06/02/17 10:47 Room Air 06/02/17 08:07 98.7 75 16 115/60 (78) 96 06/02/17 07:58 Nasal Cannula 2.00 06/02/17 04:12 98.5 75 16 118/54 (75) 89 06/01/17 23:49 98.3 78 18 101/49 (66) 93 06/01/17 19:54 98.0 77 16 114/56 (75) 92 06/01/17 17:17 75 06/01/17 14:57 98.6 88 16 129/62 (84) 95 06/01/17 14:52 06/01/17 11:34 88 21 141/62 (88) 93 Room Air I/O 06/01/17 06/01/17 06/01/17 06/02/17 06/02/17 06/02/17 07:00 15:00 23:00 07:00 15:00 23:00 Intake Total 500 ml 560 ml 920 ml 400 ml 350 ml Balance 500 ml 560 ml 920 ml 400 ml 350 ml Intake Oral 720 ml 400 ml IV Total 500 ml 560 ml 200 ml 350 ml # Voids 1 1 Result Diagram: 06/02/17 0605 06/02/17 0605 Imaging Last Impressions Liver Ultrasound 06/02/17 0000 Signed Impressions: Service Date/Time: Friday, June 02, 2017 08:10 - CONCLUSION: 1. Status post cholecystectomy with mild diffuse biliary ductal dilatation without focal abnormality in the visualized portions of the common bile duct. Suspect findings reflect reservoir effect following cholecystectomy. If there is continued clinical concern, consider MRCP examination for further evaluation. 2. Trace bilateral pleural effusions. Alcides Webb MD Chest X-Ray 06/01/17 0520 Signed Impressions: Service Date/Time: Thursday, June 01, 2017 05:45 - CONCLUSION: 1. Left basal pneumonia. Recommend medical treatment and followup to resolution. 2. Nodular density right lower lobe. Once acute symptoms resolve a CT chest maybe warranted. Deven Tatum MD Abdomen/Pelvis CT 06/01/17 0000 Signed Impressions: Service Date/Time: Thursday, June 01, 2017 08:51 - CONCLUSION: 1. Patchy alveolar consolidations within the posterior lung bases bilaterally consistent with probable pneumonia. Clinical correlation is recommended. 2. Mild intrahepatic and extrahepatic biliary ductal dilatation raising the possibility of biliary obstruction. Correlation with alkaline phosphatase and bilirubin levels is suggested. 3. Hepatosplenomegaly. 4. Small right pleural effusion. 5. Uncomplicated colonic diverticulosis. 6. Bilateral inguinal hernias containing only fat. 7. Small umbilical hernia containing only fat. 8. Mild degenerative changes and scoliosis of the thoracolumbar spine. Leon Guerrero MD Objective Remarks GENERAL: Well-nourished, well-developed female patient in [facility]. SKIN: Warm and dry. No rash. HEENT: Normocephalic. Atraumatic.Pupils equal and round. Mucous membranes pink and moist. NECK: Supple. Trachea midline. CARDIOVASCULAR: Regular rate and rhythm. No murmur appreciated. RESPIRATORY: No accessory muscle use. Clear to auscultation. Breath sounds equal bilaterally. GASTROINTESTINAL: Abdomen soft, non-tender, nondistended. Normoactive bowel sounds x4. MUSCULOSKELETAL: No obvious deformities. Extremities without clubbing, cyanosis , or edema. NEUROLOGICAL: Awake and alert. No obvious cranial nerve deficits. Motor grossly within normal limits. Normal speech. PSYCHIATRIC: Appropriate mood and affect; insight and judgment normal. A/P Problem List: (1) Pneumonia ICD Code: J18.9 - Pneumonia, unspecified organism Status: Acute (2) Hyponatremia ICD Code: E87.1 - Hypo-osmolality and hyponatremia Status: Acute (3) Hypokalemia ICD Code: E87.6 - Hypokalemia Status: Acute Assessment and Plan 72-year-old female with history of HTN, HLD, carotid stenosis s/p Left CEA, asthma, COPD, seasonal allergies, presents with 1 day history of myalgias, fevers, chills, headache, nausea, and vomiting. Sepsis with Aspiration Pneumonia: patient with multiple episodes of vomiting prior to arrival. Patient meets sepsis criteria with WBC 15K, HR 93, and source - pneumonia. Flu negative. -CXR images reviewed, shows left basilar pneumonia -CT abd/pelvis shows patchy alveolar consolidations with posterior lung bases bilaterally consistent with pneumonia -Blood cultures collected with NGTD -Obtain sputum culture if possible -Continue antibiotics with IV Rocephin, IV Azithro, and added IV Flagyl for anaerobic coverage -Incentive spirometry, O2 as needed -Albuterol inhaler prn -Had episode of hypoxia overnight with O2 sat 89%, however improved to 95%, and patient passed home O2 walk test, no oxygen needed at discharge. -Much improved today, stable for discharge, will discharge on Augmentin [id number] Intractable Nausea/Vomiting: possible gastroenteritis vs biliary obstruction vs acute cholecystitis vs other. -CT abd/pelvis reviewed, shows intra/extrahepatic biliary ductal dilatation raising possibility of biliary obstruction -LFTs mildly elevated with AST 77, ALT 50, and Alk Phos 192 -Liver/gallbladder U/S unremarkable; she is status post cholecystectomy with mild diffuse biliary ductal dilatation without focal abnormality; likely reflects reservoir effects following cholecystectomy -Repeat LFTs today show much improvement -Supportive treatment with IVF, antiemetics prn -Patient without any further nausea/vomiting or abdominal pain, tolerating oral intake, stable for discharge Multiple Electrolyte Disturbances with Hyponatremia/Hypokalemia/Hypomagnesemia: Na 129, K 2.6, Mag 1.6, suspect secondary to intractable vomiting as above. -given IV and po KCl replacement -given IV Mag sulfate 2G -continue IVF with NS w/KCl at 84cc/hr -Repeat BMP today shows much improvement, sodium, potassium, and magnesium all within normal limits -Resolved HTN/HLD: chronic -continue patient's amlodipine, coreg, statin, aspirin -holding HCTZ for now with dehydration and hyponatremia -monitor BP, adjust antihypertensives as needed -restart all home meds at discharge Seasonal Allergies: chronic -continue patient's fluticasone, cetirizine, robitussin prn Asthma/COPD: chronic, no wheezing on exam -continue patient's Breo, Singulair, and albuterol prn DVT Prophylaxis: Lovenox sq Discharge Planning Patient recovered much sooner than expected after treatment for aspiration pneumonia and she is now stable for discharge. Discharge patient to home Condition on discharge: Stable Heart healthy Diet as tolerated Ad Apolonia activity Rx written: Augmentin 875/125 one tab po bid [id number] Follow-up with primary care physician within one week Problem Qualifiers (1) Pneumonia: Qualified Codes: J18.1 - Lobar pneumonia, unspecified organism Sheryl Edmondson PA-C Jun 02, 2017 10:58 am
[2017-06-02] MEDS ORDERED: AUGM875T3 PO (11:05)
--- NOTE | 2017-06-02 11:06 | HHI.DCPOC ---
Discharge Care Plan Diagnosis: (1) Pneumonia (2) Nausea & vomiting (3) Hyponatremia (4) Hypokalemia Goals to Promote Your Health * To prevent worsening of your condition and complications * To maintain your health at the optimal level Directions to Meet Your Goals Take your medications as prescribed Follow your dietary instruction Follow activity as directed Keep your appointments as scheduled Take your immunizations and boosters as scheduled If your symptoms worsen call your PCP, if no PCP go to Urgent Care Center or Emergency Room Smoking is Dangerous to Your Health. Avoid second hand smoke Call the 24-hour hour crisis hotline for domestic abuse at Sheryl Edmondson PA-C Jun 02, 2017 11:06 am
[2017-06-02 11:17] VITALS: BP 104/55; PULSE 77; RESP 18; TEMP 98; O2SAT 93
[2017-06-02 11:25] VITALS: PULSE 77
== END 2017-06-02 11:52 | disposition home or self-care (01) | DRG 178 ==
LOC: NEPE 05:07 → NEDA 10:27 → OBSVTOIN 11:46 → NEPHCDU 16:22
PROVIDERS: ADMIT Hospitalist; ATTEND Hospitalist
DX: J69.0 Pneumonitis due to inhalation of food and vomit (principal); E87.1 Hypo-osmolality and hyponatremia; J44.0 Chronic obstructive pulmonary disease with (acute) lower respiratory infection; E83.42 Hypomagnesemia; E87.6 Hypokalemia; R11.2 Nausea with vomiting, unspecified; Z90.49 Acquired absence of other specified parts of digestive tract; I10 Essential (primary) hypertension; E78.5 Hyperlipidemia, unspecified; M79.1 Myalgia; E83.51 Hypocalcemia; E86.0 Dehydration; J32.9 Chronic sinusitis, unspecified; R09.02 Hypoxemia; Z90.710 Acquired absence of both cervix and uterus; Z85.828 Personal history of other malignant neoplasm of skin
CPT/HCPCS: 71045; 74177; 76705; 80053; 81001; 82550; 83605; 83690; 83735; 84132; 84484; 85025; 85610; 85730; 87040; 87804; 93005; 94150; 94618; 96361; 96365; 96367; 96375; J0456; J0610; J0696; J1650; J2405; J3475; J3480; J7040; J7050; Q9967